=== PATIENT | female | born 2000 | race Caucasian/White ===

== ENCOUNTER 2020-05-20 19:41 | Emergency (ER) | payer MEDICAID, OTHER ==
[~2020-05-20] VITALS: Ht 154.9 cm; Wt 63.0 kg
[2020-05-20 19:44] VITALS: BP 120/89
[2020-05-20] MEDS ORDERED: carBAMazepine 200 MG TAB PO ONE (20:35)
[2020-05-20] MEDS ORDERED: CRUSHER, PILL MC ONE (20:43)
[2020-05-20] MEDS ORDERED: CARB100C85 PO ×2 (22:00→22:12)
[2020-05-20 22:15] VITALS: BP 120/89
== END 2020-05-20 22:15 | disposition home or self-care (01) ==
LOC: MED 19:41
DX: R68.84 Jaw pain (principal)
CPT/HCPCS: 96361; 96374; 96375; 99283; 99284

== ENCOUNTER 2020-06-17 18:56 | Emergency (ER) | payer MEDICAID ==
[~2020-06-17] VITALS: Ht 154.9 cm; Wt 60.8 kg
[~2020-06-17 18:56] MED LIST: CARB100C85 PO
[2020-06-17 19:15] VITALS: BP 138/80
--- NOTE | 2020-06-17 19:17 | NUR ---
TO LOBBY A/W BED AMBULATORY
--- NOTE | 2020-06-17 19:40 | NUR ---
19 y/o female presented to ED c/o "feeling weird" after ingesting sunscreen at 1400 today. Pt state she was outside and "accidentally drank sunscreen." Pt states "since then she has been feeling weird and having overdose symptoms." Pt observed to have even and unlabored respirations, oxygen level 100% , 67 bpm HR. Pt c/o of some nausea but denies any SOB, CP, fever body aches and chills. Pulse ox placed on patient. VSS. No acute distress noted. Pt resting in bed, locked and in lowest position, HOB elevated, side rail x 1. pmh: asthma NKA
[2020-06-17] MEDS ORDERED: ONDA4TAB PO (19:59)
[2020-06-17] MEDS ORDERED: ONDANSETRON 4 MG ODT PO ONE (20:00)
[2020-06-17] MEDS ORDERED: HYDROXYZINE HYDROCHLORIDE 10 MG TAB PO ONE (20:00)
[2020-06-17 20:16] VITALS: BP 138/80
== END 2020-06-17 20:16 | disposition home or self-care (01) ==
LOC: MED 18:56
DX: T50.905A Adverse effect of unspecified drugs, medicaments and biological substances, initial encounter (principal); F41.9 Anxiety disorder, unspecified; J45.909 Unspecified asthma, uncomplicated; E11.9 Type 2 diabetes mellitus without complications; Y92.89 Other specified places as the place of occurrence of the external cause
CPT/HCPCS: 99283; Q0162

== ENCOUNTER 2020-08-24 20:07 | Emergency (ER) | payer MEDICAID ==
[~2020-08-24] VITALS: Ht 154.9 cm; Wt 61.7 kg
[~2020-08-24 20:07] MED LIST changes: +ONDA4TAB PO
[2020-08-24 20:22] VITALS: BP 124/64
--- NOTE | 2020-08-24 20:31 | NUR ---
TO BED 3, AMBULATORY FROM TRIAGE
--- NOTE | 2020-08-24 20:32 | NUR ---
patient ambulated to bathroom for urine collection
--- NOTE | 2020-08-24 20:35 | NUR ---
Patient report not eating properly for 2weeks and decided to overeat today making her stomach not feel good. Patient reports, "I HAVEN'T BEEN ATING RIGHT FOR A LONG TIME. I ONLY EAT OATMEAL AND VEGGIES" "IT FEELS LIKE MY STOMACH IS GOING TO BURST " palpation of stomach no guarding or tenderness. AAOx4, VSS. pmh: depression allergies: nka
--- NOTE | 2020-08-24 20:48 | NUR ---
lab at bedside for blood draws
[2020-08-24 20:54] LABS: BASOPHILS % (AUTO) 0.8 % (0.0-2.0); EOSINOPHILS # (AUTO) 0.1 K/uL (0-0.4); EOSINOPHILS % (AUTO) 1.8 % (0.0-4.0); HEMATOCRIT 37.5 % (36-48); HEMOGLOBIN 12.9 g/dL (12.0-16.0); LYMPHOCYTES # (AUTO) 1.6 K/uL (2.5-16.5); LYMPHOCYTES % (AUTO) 41.5 % (20.5-51.1); MEAN CORPUSCULAR HEMOGLOBIN 32 pg (27-31); MEAN CORPUSCULAR HGB CONC 34 g/dL (33-37); MEAN CORPUSCULAR VOLUME 92.1 fL (80-94); MONOCYTES # (AUTO) 0.3 K/uL (0.8-1.0); MONOCYTES % (AUTO) 6.8 % (1.7-9.3); NEUTROPHILS # (AUTO) 1.9 K/uL (1.8-7.7); NEUTROPHILS % (AUTO) 49.1 % (42.2-75.2); PLATELET COUNT (AUTO) 221 K/uL (140-450); RED BLOOD CELL COUNT(AUTO) 4.07 MIL/uL (4.20-5.40); RED CELL DISTRIBUTION WIDTH 12.7 % (11.6-13.7); WHITE BLOOD COUNT (AUTO) 3.8 K/uL (4.8-10.8)
[2020-08-24 21:20] LABS: ALBUMIN 4.2 g/dL (3.4-5.0); ANION GAP 17.7 (8-16); CARBON DIOXIDE 25.1 mmol/L (21-32); CREATININE 0.8 mg/dL (0.6-1.3); POTASSIUM 3.8 mmol/L (3.5-5.1); TOTAL BILIRUBIN 0.4 mg/dL (0.0-1.0)
--- NOTE | 2020-08-24 21:30 | NUR ---
Patient appears to be resting comfortably in bed. Vital Signs within normal limits. Respirations even and unlabored. safety measures in place. will continue to monitor
[2020-08-24] MEDS ORDERED: KETOROLAC 60 MG/2 ML VIAL IM ONE (22:20)
[2020-08-24] MEDS ORDERED: IBUP-2213 PO (22:40)
[2020-08-24] MEDS ORDERED: ONDA8TAB87 PO (22:40)
--- NOTE | 2020-08-24 22:55 | NUR ---
Patient discharged with v/s stable. Written and verbal after care instructions given and explained. Patient alert, oriented and verbalized understanding of instructions. Ambulatory with steady gait. All questions addressed prior to discharge. ID band removed. Patient advised to follow up with PMD. Rx of zofran and ibuprofen given. Patient educated on indication of medication including possible reaction and side effects. Opportunity to ask questions provided and answered.
[2020-08-24 23:04] VITALS: BP 106/69
== END 2020-08-24 22:55 | disposition home or self-care (01) ==
LOC: MED 20:07
DX: R10.13 Epigastric pain (principal); J45.909 Unspecified asthma, uncomplicated; Z79.899 Other long term (current) drug therapy; Z98.890 Other specified postprocedural states
CPT/HCPCS: 36415; 80053; 81002; 81025; 85025; 96372; 99283; J1885

== ENCOUNTER 2020-11-14 18:11 | Emergency (ER) | payer MEDICAID ==
[~2020-11-14] VITALS: Ht 154.9 cm; Wt 62.6 kg
[~2020-11-14 18:11] MED LIST changes: +IBUP-2213 PO; +ONDA8TAB87 PO
[2020-11-14 18:39] VITALS: BP 122/60
--- NOTE | 2020-11-14 19:30 | NUR ---
AMBULATED TO BED 12
--- NOTE | 2020-11-14 19:35 | NUR ---
PT. IS A 20 Y/O FEMALE WHO BROUGHT HERSELF TO THE ED WITH C/O OF VAGINAL DISCHARGE. PT. STATES THAT THE DISCHARGE IS THE COLOR YELLOW AND HAS BURNING SENSATION WHEN SHE PEES. PT. ALSO STATES "I SEE WORMS IN MY PEE." PT DENIES PAIN AT THIS TIME. DENIES N/V/D/FEVER. SKIN IS PINK/WARM/DRY; AAOX4 WITH EVEN AND STEADY GAIT; HR EVEN AND REGULAR; PT DENIES ANY FEVER, CP, SOB, OR COUGH AT THIS TIME; VSS; PATIENT POSITIONED FOR COMFORT; HOB ELEVATED; BEDRAILS UP X2; BED DOWN. ER MD MADE AWARE OF PT STATUS.
[2020-11-14 19:39] LABS: APPEARANCE,URINE CLEAR (CLEAR); BILIRUBIN,URINE NEGATIVE (NEGATIVE); BLOOD, URINE NEGATIVE (NEGATIVE); COLOR,URINE YELLOW (YELLOW); LEUKOCYTE ESTERASE ,URINE NEGATIVE (NEGATIVE); NITRITE, URINE NEGATIVE (NEGATIVE); UGLUCOSE NEGATIVE (NEGATIVE)
[2020-11-14] MEDS ORDERED: AZITHROMYCIN 250 MG TAB PO ONE (19:45)
--- NOTE | 2020-11-14 19:50 | NUR ---
PELVIC EXAM COMPLETED BY NICOLÁS KOHLER, ACCOMPANIED BY DIANDRA ALSTON (MYSELF). WET MOUNT COLLECTED.
[2020-11-14] MEDS ORDERED: cefTRIAXone 1,000 MG VIAL ONE (20:06)
--- NOTE | 2020-11-14 20:39 | NUR ---
Patient discharged with v/s stable. Written and verbal after care instructions given and explained. Patient alert, oriented and verbalized understanding of instructions. Ambulatory with steady gait. All questions addressed prior to discharge. ID band removed. Patient advised to follow up with PMD. Rx of FLAGYL given. Patient educated on indication of medication including possible reaction and side effects. Opportunity to ask questions provided and answered.
[2020-11-14] MEDS ORDERED: METR500T1 PO (20:40)
[2020-11-14 20:42] VITALS: BP 124/68
== END 2020-11-14 20:39 | disposition home or self-care (01) ==
LOC: MED 18:11
DX: N89.8 Other specified noninflammatory disorders of vagina (principal); J45.909 Unspecified asthma, uncomplicated; Z79.899 Other long term (current) drug therapy; Z98.890 Other specified postprocedural states
CPT/HCPCS: 36415; 81003; 81025; 86592; 86703; 87086; 87210; 87491; 96365; 99284; J0696

== ENCOUNTER 2021-01-17 16:00 | Emergency (ER) | payer MEDICAID ==
[~2021-01-17] VITALS: Ht 154.9 cm; Wt 65.8 kg
[~2021-01-17 16:00] MED LIST changes: +METR500T1 PO
[2021-01-17 16:17] VITALS: BP 116/72
--- NOTE | 2021-01-17 16:20 | NUR ---
PATIENT AMBULATED TO BED 5.
[2021-01-17] MEDS ORDERED: predniSONE 20 MG TAB PO ONE (16:40)
[2021-01-17] MEDS ORDERED: ALBUTEROL 0.083% 2.5 MG/3 ML NEBU INH ONE (16:40)
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
[2021-01-17] MEDS ORDERED: ALBU0.0912 IH (17:42)
[2021-01-17] MEDS ORDERED: PRED20TA5 PO (17:42)
[2021-01-17 17:51] VITALS: BP 122/78
--- NOTE | 2021-01-17 17:52 | NUR ---
Patient discharged with v/s stable. Written and verbal after care instructions given and explained. Patient alert, oriented and verbalized understanding of instructions. Ambulatory with steady gait. All questions addressed prior to discharge. ID band removed. Patient advised to follow up with PMD. Rx of PREDNISONE AND ALBUTEROL given. Patient educated on indication of medication including possible reaction and side effects. Opportunity to ask questions provided and answered.
== END 2021-01-17 17:51 | disposition home or self-care (01) ==
LOC: MED 16:00
DX: T78.40XA Allergy, unspecified, initial encounter (principal); J45.909 Unspecified asthma, uncomplicated; E11.9 Type 2 diabetes mellitus without complications; Z79.899 Other long term (current) drug therapy
CPT/HCPCS: 94640; 99283; J7512; J7613

== ENCOUNTER 2021-02-13 18:12 | Emergency (ER) | payer MEDICAID, OTHER ==
[~2021-02-13] VITALS: Ht 154.9 cm; Wt 67.1 kg
[~2021-02-13 18:12] MED LIST changes: +ALBU0.0912 IH; +PRED20TA5 PO
[2021-02-13 19:29] VITALS: BP 137/78
--- NOTE | 2021-02-13 20:30 | NUR ---
PT TAKEN TO BED 4
--- NOTE | 2021-02-13 20:39 | NUR ---
Dr. Epstein examining patient.
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
[2021-02-13] MEDS ORDERED: ATA25 PO (20:50)
[2021-02-13] MEDS ORDERED: ONDA8TAB87 PO (20:50)
--- NOTE | 2021-02-13 20:50 | NUR ---
Patient discharged with v/s stable. Written and verbal after care instructions given and explained. Patient alert, oriented and verbalized understanding of instructions. Ambulatory with steady gait. All questions addressed prior to discharge. ID band removed. Patient advised to follow up with PMD. Rx of ATARAX AND ZOFRAN given. Patient educated on indication of medication including possible reaction and side effects. Opportunity to ask questions provided and answered.
== END 2021-02-13 20:50 | disposition home or self-care (01) ==
LOC: MED 18:12
DX: R53.1 Weakness (principal); R11.0 Nausea; F41.9 Anxiety disorder, unspecified; J45.909 Unspecified asthma, uncomplicated; E11.9 Type 2 diabetes mellitus without complications; Z98.890 Other specified postprocedural states
CPT/HCPCS: 81002; 81025; 99283

== ENCOUNTER 2021-06-25 19:49 | Emergency (ER) | payer OTHER ==
[~2021-06-25] VITALS: Ht 154.9 cm; Wt 67.1 kg
[~2021-06-25 19:49] MED LIST changes: +ATA25 PO
[2021-06-25 19:50] VITALS: BP 117/69
--- NOTE | 2021-06-25 19:58 | NUR ---
TO LOBBY FOLLOWING TRIAGE
[2021-06-25] MEDS ORDERED: CEPH-588 PO (21:59)
[2021-06-25] MEDS ORDERED: cephALEXin 500 MG CAP PO ONE (22:00)
--- NOTE | 2021-06-25 22:16 | NUR ---
PT TAKEN TO BED 3
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
[2021-06-25 22:40] VITALS: BP 117/69
== END 2021-06-25 22:40 | disposition home or self-care (01) ==
LOC: MED 19:49
DX: S91.342A Puncture wound with foreign body, left foot, initial encounter (principal); J45.909 Unspecified asthma, uncomplicated; Z98.890 Other specified postprocedural states; Z79.2 Long term (current) use of antibiotics; Z79.899 Other long term (current) drug therapy; Z79.1 Long term (current) use of non-steroidal anti-inflammatories (NSAID); W45.8XXA Other foreign body or object entering through skin, initial encounter; Y92.89 Other specified places as the place of occurrence of the external cause; Y93.89 Activity, other specified; Y99.8 Other external cause status
CPT/HCPCS: 73630; 90471; 90715; 99283

== ENCOUNTER 2021-06-29 18:35 | Emergency (ER) | payer OTHER ==
[~2021-06-29] VITALS: Ht 154.9 cm; Wt 58.5 kg
[~2021-06-29 18:35] MED LIST changes: +CEPH-588 PO
[2021-06-29 18:58] VITALS: BP 113/67
--- NOTE | 2021-06-29 18:58 | NUR ---
TO ER BED 11
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
--- NOTE | 2021-06-29 19:11 | NUR ---
PT REQUESTING TEST BEFORE HAVING XRAY DONE
--- NOTE | 2021-06-29 19:11 | NUR ---
Reuben rust in [facility] - 06/29/21 at 1911 by [email or web address] XRAY AT BEDSIDE
--- NOTE | 2021-06-29 19:17 | NUR ---
REPORT GIVEN TO DIANDRA JAIME .
--- NOTE | 2021-06-29 19:26 | NUR ---
XRAY AT BEDSIDE
--- NOTE | 2021-06-29 21:38 | NUR ---
Dr. Santos examining patient.
--- NOTE | 2021-06-29 21:38 | NUR ---
DR BARBOUR PERFORMED FOREIGN OBJECT REMOVAL FROM FOOT.
[2021-06-29 22:53] VITALS: BP 113/67
--- NOTE | 2021-06-29 22:53 | NUR ---
Patient discharged with v/s stable. Written and verbal after care instructions given and explained. Patient verbalized understanding. Ambulatory with use of crutches (from home). All questions addressed prior to discharge. Advised to follow up with PMD. VSS, A/OX4, AMBULATORY, UNLABORED BREATHING, AND CALM DEMEANOR.
== END 2021-06-29 22:53 | disposition home or self-care (01) ==
LOC: MED 18:35
DX: S90.852A Superficial foreign body, left foot, initial encounter (principal); J45.909 Unspecified asthma, uncomplicated; Z79.899 Other long term (current) drug therapy; W45.8XXA Other foreign body or object entering through skin, initial encounter; Y93.89 Activity, other specified; Y92.89 Other specified places as the place of occurrence of the external cause; Y99.8 Other external cause status
CPT/HCPCS: 10120; 73630; 81025; 99284

== ENCOUNTER 2021-08-27 20:52 | Emergency (ER) | payer OTHER ==
[~2021-08-27] VITALS: Ht 154.9 cm; Wt 72.6 kg
[2021-08-27 20:56] VITALS: BP 119/69
[2021-08-27 23:23] LABS: BASOPHILS # (AUTO) 0.1 K/uL (0.00-0.22); BASOPHILS % (AUTO) 0.7 % (0.0-2.0); EOSINOPHILS # (AUTO) 0.1 K/uL (0-0.4); EOSINOPHILS % (AUTO) 1.6 % (0.0-4.0); HEMATOCRIT 36.4 % (36-48); HEMOGLOBIN 12.5 g/dL (12.0-16.0); LYMPHOCYTES # (AUTO) 2.7 K/uL (2.5-16.5); LYMPHOCYTES % (AUTO) 37.9 % (20.5-51.1); MEAN CORPUSCULAR HEMOGLOBIN 31 pg (27-31); MEAN CORPUSCULAR HGB CONC 34 g/dL (33-37); MONOCYTES # (AUTO) 0.4 K/uL (0.8-1.0); MONOCYTES % (AUTO) 5.7 % (1.7-9.3); NEUTROPHILS # (AUTO) 3.8 K/uL (1.8-7.7); NEUTROPHILS % (AUTO) 54.1 % (42.2-75.2); PLATELET COUNT (AUTO) 225 K/uL (140-450); RED CELL DISTRIBUTION WIDTH 12.5 % (11.6-13.7)
[2021-08-27] MEDS: NACL 0.9% 1,000 ML IV ONE (23:23)
[2021-08-27 23:38] LABS: ALBUMIN 4.1 g/dL (3.4-5.0); CARBON DIOXIDE 27.6 mmol/L (21-32); CREATININE 0.6 mg/dL (0.6-1.3); POTASSIUM 3.6 mmol/L (3.5-5.1); TOTAL BILIRUBIN 0.2 mg/dL (0.0-1.0)
[2021-08-27 23:44] LABS: APPEARANCE,URINE CLEAR (CLEAR); BILIRUBIN,URINE NEGATIVE (NEGATIVE); BLOOD, URINE NEGATIVE (NEGATIVE); COLOR,URINE YELLOW (YELLOW); LEUKOCYTE ESTERASE ,URINE NEGATIVE (NEGATIVE); NITRITE, URINE NEGATIVE (NEGATIVE); UGLUCOSE NEGATIVE (NEGATIVE)
[2021-08-28 01:13] VITALS: BP 124/72
== END 2021-08-28 01:15 | disposition home or self-care (01) ==
LOC: MED 20:52
DX: R55 Syncope and collapse (principal); Z20.822 Contact with and (suspected) exposure to COVID-19; R51.9 Headache, unspecified
CPT/HCPCS: 36415; 80053; 81003; 81025; 85025; 87635; 93005; 96360; 96361; 99284; C9803; J7030

== ENCOUNTER 2021-09-08 16:47 | Emergency (ER) | payer OTHER ==
[~2021-09-08] VITALS: Ht 154.9 cm; Wt 69.9 kg
[2021-09-08 16:55] VITALS: BP 117/75
[2021-09-08] MEDS ORDERED: KETOROLAC 60 MG/2 ML VIAL IM ONE (18:00)
--- NOTE | 2021-09-08 19:21 | NUR ---
Dr. Epstein examining patient.
[2021-09-08] MEDS ORDERED: ACET-8386 PO (19:27)
[2021-09-08] MEDS ORDERED: IBUP-2213 PO (19:27)
[2021-09-08 19:39] VITALS: BP 115/75
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
== END 2021-09-08 19:39 | disposition home or self-care (01) ==
LOC: MED 16:47
DX: S09.90XA Unspecified injury of head, initial encounter (principal); J45.909 Unspecified asthma, uncomplicated; Z79.899 Other long term (current) drug therapy; Z98.890 Other specified postprocedural states; V89.2XXA Person injured in unspecified motor-vehicle accident, traffic, initial encounter; Y93.89 Activity, other specified; Y92.89 Other specified places as the place of occurrence of the external cause; Y99.8 Other external cause status
CPT/HCPCS: 81025; 96372; 99283; J1885

== ENCOUNTER 2022-12-29 23:36 | Emergency (ER) | payer MEDICAID, OTHER ==
[~2022-12-29] VITALS: Ht 154.9 cm; Wt 80.3 kg
[~2022-12-29 23:36] MED LIST changes: +ACET-8905 PO
[2022-12-30 00:28] VITALS: BP 127/75; PULSE 58; RESP 20; TEMP 98; O2SAT 98
[2022-12-30] MEDS ORDERED: KETOROLAC 60 MG/2 ML VIAL IM ONE (02:15)
[2022-12-30 03:15] VITALS: BP 125/68; PULSE 58; RESP 14
[2022-12-30 03:16] VITALS: O2SAT 98
[2022-12-30 03:19] LABS: APPEARANCE,URINE CLEAR (CLEAR); BILIRUBIN,URINE NEGATIVE (NEGATIVE); BLOOD, URINE NEGATIVE (NEGATIVE); COLOR,URINE YELLOW (YELLOW); LEUKOCYTE ESTERASE ,URINE NEGATIVE (NEGATIVE); NITRITE, URINE NEGATIVE (NEGATIVE); PROTEIN,URINE NEGATIVE (NEGATIVE); UGLUCOSE NEGATIVE (NEGATIVE); UROBILINOGEN,URINE 0.2 EU/dL (0.2 - 1)
[2022-12-30] MEDS ORDERED: IBUP-2213 PO (03:42)
[2022-12-31] MEDS ORDERED: HYD2.5O TP (20:29)
[2022-12-31] MEDS ORDERED: DIPH25TA53 PO (20:29)
== END 2022-12-30 03:51 | disposition home or self-care (01) ==
LOC: MED 23:36
DX: R07.89 Other chest pain (principal); J45.909 Unspecified asthma, uncomplicated; Z79.899 Other long term (current) drug therapy
CPT/HCPCS: 81003; 81025; 87491; 96372; 99283; J1885

== ENCOUNTER 2022-12-31 19:16 | Emergency (ER) | payer MEDICAID ==
[~2022-12-31] VITALS: Ht 154.9 cm; Wt 79.4 kg
[2022-12-31 19:44] VITALS: BP 128/78; PULSE 101; RESP 16; TEMP 97.4; O2SAT 99
[2022-12-31 20:09] VITALS: BP 115/73; PULSE 87; RESP 15
[2022-12-31 20:12] VITALS: O2SAT 98
[2022-12-31] MEDS ORDERED: HYD2.5O TP (20:29)
[2022-12-31] MEDS ORDERED: DIPH25TA53 PO (20:29)
== END 2022-12-31 20:40 | disposition home or self-care (01) ==
LOC: MED 19:16
DX: S81.839A Puncture wound without foreign body, unspecified lower leg, initial encounter (principal); R53.81 Other malaise; J45.909 Unspecified asthma, uncomplicated; W57.XXXA Bitten or stung by nonvenomous insect and other nonvenomous arthropods, initial encounter; Y93.89 Activity, other specified; Y92.89 Other specified places as the place of occurrence of the external cause; Y99.8 Other external cause status
CPT/HCPCS: 99282

== ENCOUNTER 2023-02-05 23:40 | Emergency (ER) | payer MEDICAID ==
[~2023-02-05] VITALS: Ht 154.9 cm; Wt 68.0 kg
[~2023-02-05 23:40] MED LIST changes: +DIPH25TA53 PO; +HYD2.5O TP
[2023-02-06] VITALS (10 sets, daily range): BP systolic 121; BP diastolic 62; PULSE 66; RESP 16; TEMP 98; O2SAT 98
[2023-02-06 01:00] LABS: BASOPHILS % (AUTO) 0.6 % (0.0-2.0); EOSINOPHILS # (AUTO) 0.1 K/uL (0-0.4); EOSINOPHILS % (AUTO) 1.3 % (0.0-4.0); HEMATOCRIT 35.4 % (36-48); HEMOGLOBIN 12.2 g/dL (12.0-16.0); LYMPHOCYTES # (AUTO) 2.7 K/uL (2.5-16.5); LYMPHOCYTES % (AUTO) 44.1 % (20.5-51.1); MEAN CORPUSCULAR HEMOGLOBIN 31 pg (27-31); MEAN CORPUSCULAR HGB CONC 35 g/dL (33-37); MEAN CORPUSCULAR VOLUME 89.7 fL (80-94); MONOCYTES # (AUTO) 0.4 K/uL (0.8-1.0); MONOCYTES % (AUTO) 6.3 % (1.7-9.3); NEUTROPHILS # (AUTO) 2.9 K/uL (1.8-7.7); NEUTROPHILS % (AUTO) 47.7 % (42.2-75.2); PLATELET COUNT (AUTO) 239 K/uL (140-450); RED BLOOD CELL COUNT(AUTO) 3.95 MIL/uL (4.20-5.40); RED CELL DISTRIBUTION WIDTH 12.8 % (11.6-13.7); WHITE BLOOD COUNT (AUTO) 6.1 K/uL (4.8-10.8)
[2023-02-06 01:16] LABS: ALANINE AMINOTRANSFERASE 25 U/L (12-78); ALCOHOL, BLOOD < 3 mg/dL (<10); ALKALINE PHOSPHATASE 86 U/L (50-136); ANION GAP 11.4 (8-16); ASPARTATE AMINOTRANSFERASE 20 U/L (15-37); CALCIUM 8.7 mg/dL (8.5-10.1); CARBON DIOXIDE 27.9 mmol/L (21-32); CHLORIDE 107 mmol/L (98-107); CREATININE 0.7 mg/dL (0.6-1.3); GFR ARICAN-AMERICAN 133 mL/min (>90); GFR NON ARICAN-AMERICAN 110 mL/min (>90); GLUCOSE 94 mg/dL (74-106); POTASSIUM 3.3 mmol/L (3.5-5.1); SODIUM SERUM 143 mmol/L (136-145); TOTAL BILIRUBIN 0.5 mg/dL (0.0-1.0); TOTAL PROTEIN, SERUM 7.2 g/dL (6.4-8.2); UREA NITROGEN, BLOOD 12 mg/dL (7-18)
[2023-02-06 01:18] LABS: ACETAMINOPHEN < 0.5 ug/ml (10-30); SALICYLATE < 2.8 mg/dL (2.8-20.0)
[2023-02-06 01:54] LABS: AMPHETAMINE, URINE NEGATIVE ng/ml (NEG <=1000); BARBITURATE, URINE NEGATIVE ng/ml (NEG <=200); BENZODIAZEPINE, URINE NEGATIVE ng/mL (NEG <=200); CANNABINOID, URINE NEGATIVE ng/mL (NEG <=50); COCAINE, URINE NEGATIVE ng/mL (NEG <=300); OPIATE, URINE NEGATIVE ng/mL (NEG <=2000); PHENCYCLIDINE SCREEN,URINE NEGATIVE ng/mL (NEG <=25)
[2023-02-06 03:49] LABS: APPEARANCE,URINE CLEAR (CLEAR); BILIRUBIN,URINE NEGATIVE (NEGATIVE); BLOOD, URINE NEGATIVE (NEGATIVE); COLOR,URINE YELLOW (YELLOW); LEUKOCYTE ESTERASE ,URINE NEGATIVE (NEGATIVE); NITRITE, URINE NEGATIVE (NEGATIVE); PROTEIN,URINE TRACE (NEGATIVE); UGLUCOSE NEGATIVE (NEGATIVE); UROBILINOGEN,URINE 0.2 EU/dL (0.2 - 1)
[2023-02-06] MEDS ORDERED: OLANZapine 5 MG ODT PO ONE (05:10)
[2023-02-06] MEDS: SERTRALINE 50 MG TAB PO SCH (09:07)
[2023-02-07 01:26] VITALS: O2SAT 98
[2023-02-07 04:17] VITALS: O2SAT 98
[2023-02-07] MEDS: SERTRALINE 50 MG TAB PO SCH (09:45)
[2023-02-07 10:23] VITALS: BP 111/66; PULSE 60; RESP 18; TEMP 97.9; O2SAT 97
== END 2023-02-07 10:25 | disposition home or self-care (01) ==
LOC: MED 23:40
DX: T18.198A Other foreign object in esophagus causing other injury, initial encounter (principal); Z20.822 Contact with and (suspected) exposure to COVID-19; F32.A Depression, unspecified; J45.909 Unspecified asthma, uncomplicated; Z79.899 Other long term (current) drug therapy; W44.8XXA Other foreign body entering into or through a natural orifice, initial encounter; Y93.89 Activity, other specified; Y92.89 Other specified places as the place of occurrence of the external cause; Y99.8 Other external cause status
CPT/HCPCS: 36415; 70490; 80053; 80305; 81003; 81025; 85025; 87426; 99291; G0480; G0482